=== PATIENT | female | born 1945 | race Caucasian/White ===

== ENCOUNTER 2019-04-16 11:09 | Outpatient (CLI) | payer MEDICARE, SELFPAY ==
--- NOTE | 2019-04-16 | ECG_ITS ---
Measurements Intervals [place] Rate: 71 P: 50 FL: 192 QRS: -20 QRSD: 98 T: 30 QT: 382 QTc: 416 Interpretive Statements SINUS RHYTHM DELAYED PRECORDIAL R/S TRANSITION BORDERLINE ECG Electronically Signed On 04-16-2019 11:41:42 MOLD RELEASE WORKER by Rashad Lamb D.O.
== END 2019-04-16 11:10 | disposition home or self-care (01) ==
LOC: ANHLAB 11:14 → ANHCARD 11:18
PROVIDERS: PCP Internal Medicine; Visit Provider Internal Medicine
DX: R03.0 Elevated blood-pressure reading, without diagnosis of hypertension (principal); R94.31 Abnormal electrocardiogram [ECG] [EKG]
CPT/HCPCS: 93005

== ENCOUNTER 2019-12-08 11:59 | Emergency (ER) | payer MEDICARE, SELFPAY ==
[2019-12-08 12:11] VITALS: BP 175/82; PULSE 85; RESP 20; TEMP 36.9; O2SAT 100
--- NOTE | 2019-12-08 12:18 | ED.SKABFB ---
HPI - Skin/Abscess/Foreign Bdy General Chief complaint: Skin/Abscess/Foreign Body Stated complaint: shingles Time Seen by Provider: 12/08/19 12:15 Source: patient Mode of arrival: ambulatory Limitations: no limitations History of Present Illness HPI narrative: Patient is a 74-year-old female who presents complaining of rash to right back/ribs x1 day. She reports burning sensation and pain prior to rash x2 days. She denies using new soaps, detergents, or lotions. She denies exposure to chemicals or environmental allergens. She denies taking vbor-fyw-frqewsq medications for pain at this time. MD complaint: rash Related Data Home Medications Medication Instructions Recorded Confirmed ergocalciferol (vitamin D2) 1,250 1,250 mcg PO WEEKLY 07/19/19 12/08/19 mcg (50,000 unit) capsule multivitamin 1 tablet PO DAILY 07/19/19 12/08/19 Allergies Allergy/AdvReac Type Severity Reaction Status Date / Time No Known Allergies Allergy Mild Verified 08/13/19 10:06 Review of Systems Review of Systems: Narrative: CONSTITUTIONAL: Denies fever, chills, or sweats. EYES: Denies visual changes, redness, or discharge. ENT: Denies rhinorrhea, congestion, sore throat, or otalgia. CARDIOVASCULAR: Denies chest pain, palpitations, or edema. RESPIRATORY: Denies cough or dyspnea. GASTROINTESTINAL: Denies abdominal pain, nausea, vomiting, or diarrhea. GENITOURINARY: Denies dysuria or hematuria. SKIN: Reports rash to right flank/chest wall MUSCULOSKELETAL: Denies back pain, joint pain, or myalgia. NEUROLOGIC: Denies headache, numbness, dizziness, or weakness. PSYCHIATRIC: Denies anxiety or depression. [facility] Past Medical History Medical History (Updated 12/08/19 @ 12:37 by JACOB Ramirez) No significant family history Surgical History Surgical History (Updated 12/08/19 @ 12:29 by JACOB Ramirez) H/O breast biopsy Social History Social History (Updated 12/08/19 @ 12:29 by JACOB Ramirez) Smoking status: Never smoker Alcohol intake: never Substance use: never Gender identity (if verbalized by the patient): Female Exam Narrative: Exam Narrative: GENERAL: Well-appearing, well-nourished, and in no acute distress. HEAD: Normocephalic, atraumatic. EYES: EOMI. No redness or drainage. Conjunctiva are normal. ENT: Mucous membranes pink and moist. y. CHEST: No respiratory distress. Clear to auscultation. HEART: Regular rate and rhythm. EXTREMITIES: Normal range of motion. SKIN: Approximate 2 cm area of erythematous maculopapular rash with few vesicles to right flank/chest wall NEURO: No focal deficits. Alert and oriented x3. Gait steady. PSYCH: Normal affect. No signs of depression or anxiety. Course Vital Signs Vital signs: Vital Signs Temperature 36.9 C 12/08/19 12:11 Pulse Rate 85 12/08/19 12:11 Respiratory Rate 20 12/08/19 12:11 Blood Pressure 175/82 H 12/08/19 12:11 Pulse Oximetry 100 12/08/19 12:11 Temperature 36.9 C 12/08/19 12:11 Pulse Rate 85 12/08/19 12:11 Respiratory Rate 20 12/08/19 12:11 Blood Pressure 175/82 H 12/08/19 12:11 Pulse Oximetry 100 12/08/19 12:11 Reviewed. Patient has been instructed to follow-up with her PCP regarding her blood pressure. MDM - Skin/Abscess/Foreign Bdy MDM Narrative Medical decision making narrative: Patient has varicella zoster rash to right chest wall. Patient will be treated with antivirals at this time. Discussed pain management. Patient to follow-up with PCP within 5 days. Patient is stable for discharge home with outpatient follow-up. Differential Diagnosis Differential diagnosis: Likely herpes zoster Critical Care Time Critical Care Time Critical Care Time: No Discharge Plan Discharge Clinical Impression: Herpes zoster Qualifiers: Herpes zoster complications: without complications Qualified Code(s): B02.9 - Zoster without complications Patient Disposition: Home, Self-Care Condition: Stable
== END 2019-12-08 12:38 | disposition home or self-care (01) ==
PROVIDERS: Emergency Provider Nurse Practitioner; PCP Internal Medicine
DX: B02.9 Zoster without complications (principal)
CPT/HCPCS: 99213; G0463

== ENCOUNTER 2020-01-03 03:02 | Outpatient (CLI) | payer MEDICARE, SELFPAY ==
[2020-01-03 18:02] LABS: SARS-CoV-2 RNA PCR Negative
== END 2020-01-03 03:03 | disposition home or self-care (01) ==
LOC: ANHCOVIDDT 03:02
PROVIDERS: PCP Internal Medicine; Visit Provider Internal Medicine Gastroenterology
DX: Z01.812 Encounter for preprocedural laboratory examination (principal); Z20.828 Contact with and (suspected) exposure to other viral communicable diseases
CPT/HCPCS: 87635; C9803; U0003

== ENCOUNTER 2020-01-06 01:17 | Day surgery (SDC) | payer MEDICARE, SELFPAY ==
[2019-12-27 15:18] VITALS: BMI 32.1
[2020-01-06 10:51] VITALS: BP 148/72; PULSE 86; RESP 14; TEMP 36.8; O2SAT 98
[2020-01-06] MEDS: LACTATED RINGERS 1,000 ML 150 ML IV CONT (10:54)
--- NOTE | 2020-01-06 10:55 | WPDANESEPPF ---
Anes - Initial Pre Proc Eval Procedure: Operation Date: 01/06/20 12:00 Proposed Procedures p Screening Colonoscopy - Marcelo Gauthier DO Date/Time: 01/06/20 10:55 Surgeon: Marcelo Gauthier DO Pre Op Diagnosis: Neoplasm Screening Patient Data Age: 74 Gender: F Height: 1.55 m Weight: 77 kg Last Vital Signs Temp 36.8 C 01/06/20 10:51 Pulse 86 01/06/20 10:51 Resp 14 01/06/20 10:51 BP 148/72 H 01/06/20 10:51 Pulse Ox 98 01/06/20 10:51 Allergies Allergy/AdvReac Type Severity Reaction Status Date / Time No Known Allergies Allergy Mild Verified 01/06/20 10:50 Home Medications Medication Instructions Recorded Confirmed Type ergocalciferol (vitamin D2) 1,250 1,250 mcg PO WEEKLY 07/19/19 12/27/19 History mcg (50,000 unit) capsule multivitamin 1 tablet PO DAILY 07/19/19 12/27/19 History metformin 500 mg tablet 500 mg PO BID #180 tablet 08/06/19 12/27/19 Rx pravastatin 80 mg tablet 80 mg PO DAILY #90 tablet 08/06/19 12/27/19 Rx Patient hx anesthesia problems: none Family hx anesthesia problems: none PMFSH Past Medical History Medical History (Updated 01/06/20 @ 10:58 by Sher Espitia MD) Cancer breast - 2007 Dyslipidemia IFG (impaired fasting glucose) No significant family history Obesity Surgical History Surgical History (Updated 12/08/19 @ 12:29 by JACOB Ramirez) H/O breast biopsy Social History Social History (Updated 12/08/19 @ 12:29 by JACOB Ramirez) Smoking status: Never smoker Alcohol intake: never Substance use: never Substance use type: does not use Gender identity (if verbalized by the patient): Female Spiritual care concerns: No Anes - Eval Final PreProcedure Day of Procedure 01/06/20 10:55 Patient weight: obese Heart: regular rate and rhythm Lungs: clear to auscultation and normal air movement Airway: Mallampati scale class II Neurological: alert and oriented Last oral intake: >/= 8 hours ASA classification: III Emergent: no Anesthetic plan: proceed Anesthesia type and monitoring: general GIVS Informed Consent: The patient's anesthetic plan and its attendant risks and benefits were discussed with the patient/family/POA. Questions were solicited and answers provided to the satisfaction of the patient/family/POA.
--- NOTE | 2020-01-06 11:28 | P.HP_ITS ---
H&P: [facility] History of Present Illness Date/Time: 01/06/20 11:28 Chief complaint: Neoplasm Screening Narrative: Reason for visit is colonoscopy. This very pleasant lady seen in consultation at the request of the primary physician. Impression: Screening and surveillance colonoscopy. The patient's history adenomatous colon polyps. Pre diabetes. Obesity. 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 HLD. Vitamin-D deficiency. Recommendation: Colonoscopy. History: this very pleasant lady's here for screening and surveillance colonoscopy. She has history adenomatous colon polyps. GI review systems relatively unremarkable. Physical examination: General: very pleasant patient in no acute distress. HEENT: Head was normocephalic sclerae is clear mouth without masses neck was supple. Heart: Rate rhythm regular without S3 or S4. Lungs: CTA. Abdomen: Soft with no guarding or rigidity. Bowel sounds were active. Neurologic: Cranial nerves 2 through 12 intact. No focal defects. No clonus. Musculoskeletal system: Revealed no joint tenderness or swelling no muscle atrophy. Extremities: Reveal no significant edema. Skin: Warm and dry with normal turgor. Mental status: intact. Patient is alert and oriented. Review of Systems Review of Systems: All systems reviewed & are unremarkable except as noted in HPI and below PMFSH Past Medical History Medical History (Updated 01/06/20 @ 10:58 by Sher Espitia MD) Cancer breast - 2007 Dyslipidemia IFG (impaired fasting glucose) No significant family history Obesity Surgical History Surgical History (Updated 12/08/19 @ 12:29 by JACOB Ramirez) H/O breast biopsy Social History Social History (Updated 12/08/19 @ 12:29 by JACOB Ramirez) Smoking status: Never smoker Alcohol intake: never Substance use: never Substance use type: does not use Gender identity (if verbalized by the patient): Female Spiritual care concerns: No Meds Home Medications and Allergies Home Medications Medication Instructions Recorded Confirmed Type ergocalciferol (vitamin D2) 1,250 1,250 mcg PO WEEKLY 07/19/19 12/27/19 History mcg (50,000 unit) capsule multivitamin 1 tablet PO DAILY 07/19/19 12/27/19 History metformin 500 mg tablet 500 mg PO BID #180 tablet 08/06/19 12/27/19 Rx pravastatin 80 mg tablet 80 mg PO DAILY #90 tablet 08/06/19 12/27/19 Rx Allergies Allergy/AdvReac Type Severity Reaction Status Date / Time No Known Allergies Allergy Mild Verified 01/06/20 10:50 Vital Signs Vital Signs - 24 hr 01/06/20 10:51 Temperature 36.8 C Pulse Rate 86 Respiratory Rate 14 Blood Pressure 148/72 H Pulse Oximetry 98
[2020-01-06 11:44] LABS: Glucose Point of Care 103 (65-105)
[2020-01-06 12:07] VITALS: BP 100/50; PULSE 75; RESP 17; O2SAT 97
[2020-01-06 12:17] VITALS: BP 102/53; PULSE 72; RESP 17; O2SAT 98
[2020-01-06 12:27] VITALS: BP 127/56; PULSE 70; RESP 17; O2SAT 99
== END 2020-01-06 12:55 | disposition home or self-care (01) ==
PROVIDERS: PCP Internal Medicine; Visit Provider Internal Medicine Gastroenterology
PROC: 0DJD8ZZ Inspection of Lower Intestinal Tract, Via Natural or Artificial Opening Endoscopic (ICD-10-PCS; CPT 45378; principal; 2020-01-06 12:00)
DX: Z12.11 Encounter for screening for malignant neoplasm of colon (principal); K64.8 Other hemorrhoids; K57.90 Diverticulosis of intestine, part unspecified, without perforation or abscess without bleeding; K63.89 Other specified diseases of intestine; Z86.010 Personal history of colon polyps; R73.03 Prediabetes; E66.9 Obesity, unspecified; Z68.32 Body mass index [BMI] 32.0-32.9, adult; Z85.3 Personal history of malignant neoplasm of breast; E78.5 Hyperlipidemia, unspecified; R73.01 Impaired fasting glucose; Z79.84 Long term (current) use of oral hypoglycemic drugs
CPT/HCPCS: 45380; 88305; J2704; J7120

== ENCOUNTER → 2020-05-19 10:12 | Outpatient (CLI) | payer MEDICARE, SELFPAY ==
--- NOTE | ~2020-05-19 | DEXA_ITS ---
Bone Density Report Name: Carolynn Magaña Age: 75 Sex: Female Ethnicity: White Date of : 1945 Indication: postmenopausal; screening for osteoporosis; height loss; Referring Provider: LIZ BARRETT Study: Bone densitometry was performed. Exam Date: May 19, 2020 Accession number: [id number] Bone Density: Region BMD T-score Z-score Classification AP Spine (L1-L4) 1.211 1.5 3.9 Normal Femoral Neck (Left) 0.719 -1.2 1.0 Osteopenia Total Hip (Left) 0.876 -0.5 1.3 Normal Femoral Neck (Right) 0.692 -1.4 0.7 Osteopenia Total Hip (Right) 0.881 -0.5 1.3 Normal Total Hip Mean 0.879 -0.5 1.3 Normal World Health Organization criteria for BMD impression classify patients as: Normal (T-score at or above -1.0), Osteopenia (T-score between -1.0 and -2.5), or Osteoporosis (T-score at or below -2.5). 10-year Fracture Risk(1): Major Osteoporotic Fracture 11% Hip Fracture 2.0% Reported Risk Factors: [place] (), Neck BMD=0.692, BMI=34.2 (1) FRAX(R) Version 3.08. Fracture probability calculated for an untreated patient. Fracture probability may be lower if the patient has received treatment. Previous Exams: Region Exam Age BMD T-score BMD Change BMD Change Date g/cm2 vs Baseline vs Previous AP Spine(L1-L4) 05/19/2020 75 1.211 1.5 0.019 -0.010 04/05/2016 70 1.221 1.6 0.030* 0.042* 09/02/2009 64 1.179 1.2 -0.013 -0.013 05/30/2006 61 1.192 1.3 Total Hip(Left) 05/19/2020 75 0.876 -0.5 -0.049* -0.073* 04/05/2016 70 0.950 0.1 0.024 0.024 09/02/2009 64 0.926 -0.1 0.000 0.000 05/30/2006 61 0.925 -0.1 Total Hip(Right) 05/19/2020 75 0.881 -0.5 -0.068* -0.047* 04/05/2016 70 0.928 -0.1 -0.021 0.023 09/02/2009 64 0.905 -0.3 -0.044* -0.044* 05/30/2006 61 0.949 0.1 *Denotes significance at 95% confidence level, LSC for AP Spine = 0.022 g/cm2, LSC for Total Hip = 0.027 g/cm2 Clinical Information Provided by Patient: Has used the following medications: Vitamin D, MULTI-VITAMIN Patient maximum height was 62 Menopause Age: 49 No regular weight bearing exercise Drinks caffeinated beverages Onset of menses at age 10 Number of children 0 Impression: The patient has low bone mass, based on the Right Femoral Neck T-score
== END ==
PROVIDERS: Visit Provider Obstetrics & Gynecology Gynecology
DX: Z78.0 Asymptomatic menopausal state (principal); M85.852 Other specified disorders of bone density and structure, left thigh; M85.851 Other specified disorders of bone density and structure, right thigh
CPT/HCPCS: 77080

== ENCOUNTER → 2020-11-02 13:45 | Outpatient (CLI) | payer MEDICARE, SELFPAY ==
--- NOTE | ~2020-11-02 | XR_ITS ---
EXAMINATION: XR hip RT 2V w AP pelvis DATE: 11/02/2020 14:12 INDICATION: Unspecified osteoarthritis, unspecified site. Right hip pain. TECHNIQUE: An anteroposterior view pelvis and 2 views of right hip were obtained. COMPARISON: Right hip radiographs 06/29/2017 FINDINGS: There is lumbar levoscoliosis and severe spondylosis. No fracture. There is mild osteoarthr itis of the hips. Osteitis pubis is noted. IMPRESSION: 1. Mild osteoarthritis of the hips. Reviewed, dictated and finalized at location A.
== END ==
PROVIDERS: PCP Internal Medicine; Visit Provider Internal Medicine
DX: M16.11 Unilateral primary osteoarthritis, right hip (principal)
CPT/HCPCS: 73502

== ENCOUNTER → 2022-03-18 15:29 | Outpatient (CLI) | payer MEDICARE, SELFPAY ==
--- NOTE | ~2022-03-18 | XR_ITS ---
XR knee RT 3V DATE: 03/18/2022 16:29 INDICATION: Knee pain TECHNIQUE: [place] and standing AP and lateral views COMPARISON: April 09, 2007 right knee FINDINGS: There is tricompartment osteoarthritis, most prominent at the medial and patellofemoral com partments, with moderately prominent loss of height of medial compartment joint spaces and periarticu lar spurring at all 3 compartments, most prominent at the patella. There is prominent superior pole patellar enthesopathy at the quadriceps tendon insertion. No fracture, dislocation or joint effusion. No periosteal reaction or bone destruction. There are small radiopaque density overlying the inner aspect of the lateral compartment joint space may be a small radiopaque intra-articular loose body. No other radiopaque intra-articular loose body or chondrocalcinosis is noted. IMPRESSION: Tricompartment osteoarthritis Possible small radiopaque intra-articular loose body Reviewed, dictated and finalized at location A. L BONDER
--- NOTE | ~2022-03-18 | XR_ITS ---
XR hip RT min 2V DATE: 03/18/2022 16:29 INDICATION: Right hip pain TECHNIQUE: AP and lateral views of right hip COMPARISON: 11/02/2020 right hip FINDINGS: No fracture or dislocation, avascular necrosis or bone destruction of the right hip. Right hip joint space appears relatively well preserved. Pubic symphysis and right sacroiliac joint are intact. Prominent degenerative disc disease at L4-5 and L5-S1. IMPRESSION: No significant abnormality right hip Prominent degenerative disc disease at L4-5 and L5-S1 Reviewed, dictated and finalized at location A. TER CIVIL
== END ==
PROVIDERS: PCP Nurse Practitioner; Visit Provider Nurse Practitioner
DX: M25.551 Pain in right hip (principal); M17.11 Unilateral primary osteoarthritis, right knee; M51.36 Other intervertebral disc degeneration, lumbar region; M51.37 Other intervertebral disc degeneration, lumbosacral region
CPT/HCPCS: 73502; 73562

== ENCOUNTER 2023-06-08 12:59 | Outpatient (CLI) | payer MEDICARE, SELFPAY ==
--- NOTE | ~2023-06-08 | DEXA_ITS ---
Bone Density Report Name: AVA GORDON Age: 78 Sex: Female Ethnicity: White Date of : 1945 Indication: postmenopausal; screening for osteoporosis; height loss; Referring Provider: LIZ BARRETT Study: Bone densitometry was performed. Exam Date: June 08, 2023 Accession number: [id number] Bone Density: Region BMD T-score Z-score Classification AP Spine (L1-L4) 1.274 2.1 4.7 Normal Femoral Neck (Left) 0.677 -1.5 0.7 Osteopenia Total Hip (Left) 0.871 -0.6 1.4 Normal Femoral Neck (Right) 0.662 -1.7 0.6 Osteopenia Total Hip (Right) 0.867 -0.6 1.4 Normal Total Hip Mean 0.869 -0.6 1.4 Normal World Health Organization criteria for BMD impression classify patients as: Normal (T-score at or above -1.0), Osteopenia (T-score between -1.0 and -2.5), or Osteoporosis (T-score at or below -2.5). 10-year Fracture Risk(1): Major Osteoporotic Fracture 13% Hip Fracture 3.0% Reported Risk Factors: [place] (), Neck BMD=0.662, BMI=33.4 (1) FRAX(R) Version 3.08. Fracture probability calculated for an untreated patient. Fracture probability may be lower if the patient has received treatment. Previous Exams: Region Exam Age BMD T-score BMD Change BMD Change Date g/cm2 vs Baseline vs Previous AP Spine(L1-L4) 06/08/2023 78 1.274 2.1 0.082* 0.063* 05/19/2020 75 1.211 1.5 0.019 -0.010 04/05/2016 70 1.221 1.6 0.030* 0.042* 09/02/2009 64 1.179 1.2 -0.013 -0.013 05/30/2006 61 1.192 1.3 Total Hip(Left) 06/08/2023 78 0.871 -0.6 -0.055* -0.006 05/19/2020 75 0.876 -0.5 -0.049* -0.073* 04/05/2016 70 0.950 0.1 0.024 0.024 09/02/2009 64 0.926 -0.1 0.000 0.000 05/30/2006 61 0.925 -0.1 Total Hip(Right) 06/08/2023 78 0.867 -0.6 -0.082* -0.014 05/19/2020 75 0.881 -0.5 -0.068* -0.047* 04/05/2016 70 0.928 -0.1 -0.021 0.023 09/02/2009 64 0.905 -0.3 -0.044* -0.044* 05/30/2006 61 0.949 0.1 *Denotes significance at 95% confidence level, LSC for AP Spine = 0.022 g/cm2, LSC for Total Hip = 0.027 g/cm2 Clinical Information Provided by Patient: Has used the following medications: Vitamin D, MULTI-VITAMIN Patient maximum height was 62 Menopause Age: 49 No regular weight bearing exercise Drinks caffeinated beverages Onset of
== END 2023-06-08 13:00 ==
PROVIDERS: PCP Nurse Practitioner; Visit Provider Obstetrics & Gynecology Gynecology
DX: Z78.0 Asymptomatic menopausal state (principal); M85.852 Other specified disorders of bone density and structure, left thigh; M85.851 Other specified disorders of bone density and structure, right thigh
CPT/HCPCS: 77080

== ENCOUNTER 2024-08-30 12:36 | Outpatient (CLI) | payer MEDICARE, OTHER, SELFPAY ==
--- NOTE | ~2024-08-30 | MM_ITS ---
EXAMINATION: MM screening jessica BI w isasc HISTORY: Screening mammogram TECHNIQUE: Craniocaudal and mediolateral oblique 3-D tomosynthesis images were obtained and synthetic 2-D images were generated. CAD analysis was submitted and interpreted. COMPARISON: 12/12/2006, 05/30/2006 BREAST PARENCHYMAL COMPOSITION:Not Dense. There are scattered areas of fibroglandular density. FINDINGS: No suspicious mass, calcification, or architectural distortion are identified in either telma ast to suggest malignancy. There has been no suspicious interval change. IMPRESSION: No mammographic evidence of malignancy. Recommend routine screening mammography in one year. BI-RADS Category 1: Negative Reviewed, dictated and finalized at location .
== END 2024-08-30 12:37 | disposition home or self-care (01) ==
LOC: ANHIMG 12:39
PROVIDERS: PCP Nurse Practitioner Family; Visit Provider Obstetrics & Gynecology Gynecology
DX: Z12.31 Encounter for screening mammogram for malignant neoplasm of breast (principal)
CPT/HCPCS: 77063; 77067

== ENCOUNTER 2024-10-16 13:30 | Emergency (ER) | payer MEDICARE, OTHER, SELFPAY ==
--- NOTE | ~2024-10-16 | XR_ITS ---
EXAMINATION: XR hand RT min 3V DATE: 10/16/2024 14:07 INDICATION: Dorsal/medial right hand pain post fall TECHNIQUE: Posteroanterior, oblique and lateral views of the right hand were obtained. COMPARISON: None. FINDINGS: Diffuse osteopenia. No traumatic malalignment. No fracture. There is likely chronic mild palmar sublu xation at the first-third metacarpophalangeal joints with moderate associated osteoarthritis. Severe osteoarthritis at the third and fourth distal interphalangeal joints with radial sided central erosio ns at the base of the distal phalanges with gullwing configuration consistent with erosive osteoarthr itis. This results in slight radial angulation at both joints. Moderate osteoarthritis at the first i nterphalangeal, second and fifth distal interphalangeal and fourth proximal interphalangeal joints as well as the first carpometacarpal joint. Mild osteoarthritis at the wrist, triscaphe and remaining i nterphalangeal joints. Mild periarticular soft tissue swelling about the first and third metacarpopha langeal joints. IMPRESSION: 1. 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 No acute osseous adenopathy. Reviewed, dictated and finalized at location A.
--- NOTE | ~2024-10-16 | XR_ITS ---
EXAMINATION: XR shoulder RT min 2V DATE: 10/16/2024 14:07 INDICATION: Right shoulder pain post fall TECHNIQUE: AP internally and externally rotated, AP oblique externally rotated and axillary views of the right shoulder were obtained. COMPARISON: 06/04/2010 FINDINGS: Mild cephalad subluxation of the right humeral head with respect to the glenoid with narrowing of the subacromial space consistent with rotator cuff tear. No fracture. Moderate osteoarthritis at the acr omioclavicular joint with small inferiorly directed osteophytes. There is also mild right glenohumera l osteoarthritis with moderate-sized marginal osteophytes along the posterior and posterior inferior rim of the glenoid. Calcified nodule right lung consistent with old granulomatous disease. Right lung s otherwise clear with no pleural fusion or pneumothorax. Soft tissues are unremarkable. IMPRESSION: 1. Mild cephalad subluxation of the right humeral head consistent with rotator cuff tear. 2. Mild right glenohumeral and moderate acromioclavicular osteoarthritis. No fracture. Reviewed, dictated and finalized at location A. IMPRESSION: 1. Mild cephalad subluxation of the right humeral head consistent with rotator cuff tear. 2. Mild right glenohumeral and moderate acromioclavicular osteoarthritis. No fr acture.
--- OUTSIDE RECORDS SUMMARY | 2024-10-16 13:33 | XMS_ITS | Clinical Summary ---
Author Organization [facility] Address [address] [facility] [address] [place] [address] Phone Care Team Providers Care Bag Printer Name Role Phone Unavailable Primary Care Provider Unavailabl e Social History Tobacco Use Types Packs/Day Years Used Date Smoking Tobacco: Never Assessed Comments Unknown Sex and Gender Information Value Date Recorded Sex Assigned at Not on file Legal Sex Female 10:29 PM CDT Gender Identity Not on file Sexual Orientation Not on file Plan of Treatment Health Maintenance Due Date Last Done Comments Hepatitis C Virus (HCV) Screening 1945 TdaP Immunization 1945 Pneumococcal Immunization (5 0+ years) (1 of 1 - PCV) 1994 Zoster Immunization (1 of 2) 1994 Respiratory Syncytial Virus (RSV) Immunization (Adult) (1 - 1-dose 75+ series) 05/21/2019 SARS-COV-2 Immunization (1 - season) 2023 Influenza Immunization (#1) 2024 Colonoscopy Discontinued 01/06/2020, 10/15/2014 Colorectal Cancer Screening Discontinued Cologuard Discontinued Hepatitis B Immunization Aged Out No longer eligible based on patient's age to complete this topic Human Papillomavirus (HPV) Immunization Aged Out No longer eligible based on patient's age to complete this topic Immunochemical Fecal Occult Blood Discontinued Meningococcal Immunization (ACWY) Aged Out No longer eligible based on patient's age to complete this topic Rotavirus Immunization Aged Out No lo nger eligible based on patient's age to complete this topic Procedures Procedure Name Priority Date/Time Associated Diagnosis Comments COLONOSCOPY Routine 01/06/2020 from Last 3 Months or Most Recently Relevant to Health Maintenance Results * COLONOSCOPY (01/06/2020) Marcelo Gauthier DO PROCEDURE/MINOR SURGICAL ORDERA BLES Final Result from Last 3 Months or Most Recently Relevant to Health Maintenance Insurance * Guarantor: Carolynn Magaña Account Type Relation to Patient Date of Phone Billing Address Personal/Family Self [address] [place] [address] MEDICARE [facility]
--- OUTSIDE RECORDS SUMMARY | 2024-10-16 13:33 | XMS_ITS | Clinical Summary ---
Author Organization [facility] Address [address] [place] [id number] Care Team Providers Care Cigar Packer And Grader Name Role Phone Adelaide Dill MD Primary Care Provider + Allergies No known active allergies Medications cholecalciferol (VITAMIN D-3) 2,000 unit tablet Active multivitamin tabletIndication s:Vitamin Deficiency Prevention Active pravastatin (PRAVACHOL) 40 mg tablet daily Active metFORMIN (GLUCOPHAGE) 1,000 mg tablet Acti ve ergocalciferol (VITAMIN D) 50,000 unit capsule TK ONE C PO Q WK 02/11/2019 Active difluprednate (DUREZOL) 0.05 % drops Active calcium carb,cit-mag12-v it D3 (Calcium Magnesium + D) 500-250-200 mg-mg-unit tablet Active brimonidine-lucian loL (COMBIGAN) 0.2-0.5 % ophthalmic solution Active bromfenac 0.09 % ophthalmic solution Active Active Problems Problem Noted Date Diagnosed Date History of left breast cancer 02/15/2018 Ductal carcinoma in situ (DCIS) of breast 2014 Surgical History Surgery Date Site/Laterality Comments AL BX BREAST NEEDLE CORE W/O IMAGING GUIDANCE SPX Biopsy Breast Percutaneous Needle Core - (Added by TW Conv) Family History Medical History Relation Name Comments Stomach cancer Father Family histor y of malignant neoplasm of stomach - (Added by TW Conv) Relation Name Status Comments Father Social History Tobacco Use Types Packs/Day Years Used Date Smoking Tobacco: Never Smokeless Tobacco: Never Alcohol Use Standard Drinks/Week Comments No 0 (1 standard drink = 0.6 oz pur e alcohol) Comments No Sex and Gender Information Value Date Recorded Sex Assigned at Not on file Legal Sex Female 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 Gender Identity Not on file Sexual Orientation Not on file Obstetrics History Last Filed Vital Signs Vital Sign Reading Time Taken Comments Blood Pressure - - Pulse - - Temperature - - Respiratory Rate - - Oxygen Saturation - - Inhaled Oxygen Concentration - - Weight 77.1 kg (169 lb 15.6 oz) 05/06/2021 2:33 PM PUBLIC AREA ATTENDANT Height 154.9 cm (5' 1) 05/06/2021 2:33 PM PUBLIC AREA ATTENDANT Body Mass Index 32.12 05/06/2021 2:33 PM PUBLIC AREA ATTENDANT Plan of Treatment Health Maintenance Due Date Last Done Comments Depression Screening 1945 Fall Risk Assessment 1945 Osteoporosis Screening-Bone Density Scan 1945 Hepatitis B Screening 1962 Zoster Vaccine (1 of 2) 1994 Well Visit 65+ 2009 Influenza Vaccine (#1) 2024 9, 12/05/2017, 12/20/2016, Additional history exists DTaP/Tdap/Td Vaccine (2 - Td or Tdap) 08/02/2029 08/03/2019 Pneumococcal vaccine 65+ Completed 12/05/2017, 12/06 Insurance MEDICARE [facility] MEDICARE SUPPLEMENT INSURANCE [facility] MEDICARE SUPPLEMENT INSURANCE MEDICARE [employer] MED[employer]ARE SUPPLEMENT INSURANCE Care Teams Cigar Packer And Grader Relationship Specialty Start Date End Date Adelaide Dill MD [address] [id number] PCP - General Gynecology 07/24/23
--- OUTSIDE RECORDS SUMMARY | 2024-10-16 13:36 | XMS_ITS | Continuity of Care Document ---
Author Organization [facility] Address [address] [facility] [address] [facility] [address] [place] [address] Phone Care Team Providers Care Flag Football Coach Name Role Phone Wilmer Geronimo Unavailable Unavailable Procedures Procedure Date Optic Nerve Topography-Professional Optic Nerve Topography-Professional Optic Nerve Topography Optic Nerve Topography Office/outpatient Visit, Est Optic Nerve Head Eval Office/outpatient Visit, Est Optic Nerve Head Eval No Script Corneal Pachymetry Fundus Photography W/ Report Visual Field Examination(s) No Charge Glasses Check Eye Exam & Treatment Refraction Office/outpatient Visit, Est Fundus Photography W/ Report Advance Directives Directive Yes / No Effective Date File Name No Information Encounters Encounter Description Practice Location Reason(s) For Visit Diagnoses Date Provider Providers Copied on Encounter [facility], [address] [place] [address] [address], [place], [place], [id number], [place] tel:[phone] [facility] No Information 0 Juanpablo Guillen. [facility] , [address], [place], [address], [place]. tel:[phone] Referring Provider: [address], [place], [address]. tel:[phone] [facility], [address], [place], [place], [id number], [place] tel:[phone] [facility] No Information 0-201 0 Juanpablo Guillen. [address], [address], [place], [place], [facility], [place]. tel:[phone] Referring Provider: Wilmer Urrutia, [address], [place], [facility]. tel:[phone] Office/outpat ient Visit, Est [facility], [id number] [place] [address] [address], [place], [place], [id number], [place] tel:[phone] [facility] No Information 3-201 0 Juanpablo Guillen. [address], [address], [place], [place], [facility], [place]. tel:[phone] Office/outpat ient Visit, Est [facility], [id number] [place] [address] [address], [place], [place], [id number], [place] tel:[phone] [facility] No Information 200 9 Juanpablo Guillen. [address], [address], [place], [facility], [place]. tel:[phone] Referring Provider: Wilmer Urrutia, [address], [place], [facility]. tel:[phone] [facility], [address] [place] [address] [address], [place], [place], [id number], [place] tel:[phone] [facility] No Information 9-200 9 Juanpablo Guillen. [address], [address], [place], [facility], [place]. tel:[phone] Referring Provider: Wilmer Urrutia, [address], [place], [facility]. tel:[phone] [facility], [address], [place], [place], [id number], [place] tel:[phone] [facility] No Information Oct-0 8-200 8 Juanpablo Guillen. [address] [facility] , [address], [place], [address], . tel:[phone] [facility], [address], [place], [place], [id number], [place] tel:[phone] [facility] No Information Apr-2 3-200 8 Juanpablo Guillen. [address] [facility] [address], [place], [address], [place]. tel:[phone] Office/outpat ient Visit, [facility], [address], [place], [place], [id number], [place] tel:[phone] [facility] No Information Mar-2 3-200 7 Juanpablo Guillen. [address] [facility], [place], [address], [place]. tel:[phone] Referring Provider: [facility] [address], [place], [facility]. tel:[phone] Family History Family Member Type Diagnosis Age At Onset No Information Payers Payer name Insurance type Covered green party ID Authoriza tion(s) Medicare [facility] [id number] [place] [id number] Social History Type Description Quantity Date Captured Comments Sex Female Smoking Status No Information Chief Complaint And Reason For Visit No Information Reason For Referral Reason For Referral No Information History Of Present Illness Encounter Date Complaint History Of Prese nt Illness No Information Functional Status Date Functional Assessmen t No Information Instructions Date Instruction Additional Infor mation No Information Assessments Type Assessment Date No Information Patient Care Teams Name Effective Dates (start - stop) Status Members No Information
[2024-10-16 13:40] VITALS: BP 169/91; PULSE 99; RESP 18; TEMP 36.4; O2SAT 97
--- NOTE | 2024-10-16 14:03 | ED.FALL ---
HPI - Fall General Chief Complaint: Extremity Injury, Upper Stated Complaint: fall/shoulder pain Time Seen by Provider: 10/16/24 13:40 Source: patient and RN notes reviewed Mode of arrival: ambulatory Limitations: no limitations History of Present Illness HPI Narrative: 79-year-old female presents [facility] complaining of fall proximally 4 days ago. Patient says she was at [employer] when she did not notice a child lying on the ground she tripped over the child falling to her knees and hands. Patient denies hitting her head, loss of conscious, neck pain, back pain. Patient is complaining of right hand pain and right shoulder pain. Patient also reports present her left shoulder but denies any pain to her shoulder. Patient denies any other injuries, numbness, tingling, headaches, dizziness, lightheadedness, blurry vision vision changes, nausea, vomiting, chest pain, difficulty breathing, or any other symptoms. Patient is not take any blood thinners. Patient says he has been taking Tylenol to help with her shoulder pain says it helps has she was unable to move her right shoulder initially to the pain and now she can move for shoulder with mild discomfort. Patient reports a history of high cholesterol and prediabetes. Related Data Home Medications ?Medication ?Instructions ?Recorded ?Confirmed ?Last Taken ?Type multivitamin 1 tablet PO DAILY 07/19/19 10/16/24 01/05/20 History ergocalciferol (vitamin D2) 1,250 1,250 mcg PO WEEKLY 09/16/20 10/16/24 Unknown History mcg (50,000 unit) capsule acetaminophen 650 mg 650 mg PO Q8H 01/15/24 10/16/24 Unknown History tablet,extended release (Tylenol Arthritis Pain) Allergies Allergy/AdvReac Type Severity Reaction Status Date / Time No Known Allergies Allergy Mild Verified 10/16/24 13:31 Review of Systems Review of Systems: CONSTITUTIONAL: Denies fever, chills, or sweats. EYES: Denies visual changes, blurry vision, redness, or discharge. ENT: Denies rhinorrhea, congestion, sore throat, or otalgia. CARDIOVASCULAR: Denies chest pain, palpitations, dizziness, lightheadedness, or edema. RESPIRATORY: Denies cough, wheezing, difficulty breathing, or dyspnea. GASTROINTESTINAL: Denies abdominal pain, nausea, vomiting, or diarrhea. GENITOURINARY: Denies dysuria or hematuria. SKIN: Denies rash or itching. MUSCULOSKELETAL: Denies back pain, joint pain, or myalgia. Positive for right shoulder and right hand pain. NEUROLOGIC: Denies headache, loss of consciousness, seizures, focal weakness, slurred speech, facial droop, numbness, or weakness. PSYCHIATRIC: Denies anxiety or depression. All other systems reviewed are negative, except as documented in HPI. REPLACED BY [facility] Past Medical History Medical History Arthritis Obesity Cancer breast - 2007 No significant family history Dyslipidemia IFG (impaired fasting glucose) Surgical History Surgical History History of appendectomy H/O breast biopsy Family History Family History Father Stomach cancer Mother Pulmonary fibrosis Social History Social History Smoking status: Never smoker Second hand tobacco smoke exposure: Yes Alcohol intake: never Substance use: never Substance use type: does not use Current Housing: Decline to Answer Concerned About Future Housing: Decline to Answer Difficulty Paying Gas/Electric Bills: Decline to Answer Difficulty Paying for Meds: Decline to Answer Currently Unemployed: Decline to Answer Education: Decline to Answer Difficulty w/ Childcare or Family Care: Decline to Answer Living arrangements: with family Occupation/Education: retired Gender identity (if verbalized by the patient): Female Sexual Orientation (if Verbalized by the Patient): Straight or Heterosexual Spiritual care concerns: No Agree to blood products: Yes Comments At the time of my signature, I reviewed and agree with the nursing past medical, surgical, social, and family history. There is no relevant family history pertinent to the patient complaint. Exam Narrative: GENERAL: This is a well-nourished, well-developed adult, in no apparent distress. They are non ill-appearing, nontoxic appearing. HEAD: normocephalic, atraumatic. No raccoon eyes or Rebollar signs. EYES: Sclera clear/white. Conjunctiva normal. Vision is grossly intact. Extraocular movements intact. Pupils PERRLA. No subconjunctival hemorrhage. EARS: External ears normal, auditory canals clear and without drainage, TMs normal without perforation. Hearing grossly intact. No hemotympanum bilaterally. NOSE: External nose normal with no obvious nasal discharge, nasal turbinates without redness, no rhinorrhea. No septal hematoma. THROAT: Mucous membranes moist, posterior pharynx clear, without erythema or swelling. Uvula midline. NECK: Neck supple, non-tender without lymphadenopathy, masses or thyromegaly. No cervical point tenderness, crepitus, step-off. No midline tenderness. Neck nontender to full range of motion. CARDIOVASCULAR: Regular rate and rhythm without murmurs, gallops, or rubs. CHESTWALL: Chest wall nontender, no accessory muscle movement, no retractions. No paradoxical chest wall movements. No flail chest segment. RESPIRATORY: Clear to auscultation. Breath sounds equal bilaterally. No wheezes, rales, or rhonchi. GASTROINTESTINAL: Abdomen soft, non-tender, nondistended. Bowel sounds are active. No hepato-splenomegaly, or palpable masses. No guarding or rigidity. No rebound tenderness. Negative greg's sign and vance yang's sign. SKIN: warm, Dry, intact with no suspicious lesions or rash, good texture and turgor. NEURO: awake, alert, and oriented to person, place and time. There were no obvious focal neurologic abnormalities. EXTREMITIES: No pelvic instability. Bilateral knees are normal. Left shoulder: Mild bruising to the lateral shoulder, nontender through full range of motion, no bony tenderness. Otherwise shoulder unremarkable. Right shoulder: No obvious deformity, bruising, injury, redness, swelling. Mild tenderness with shoulder flexion otherwise nontender through full range of motion. Normal sensation. Capillary refill less than 2 seconds. Neurovascular status intact distal injury. Right radial pulse 2 +palpable. Right hand: No obvious deformity, redness, swelling. Mild bruising the 4th and 5th MCP joints. There is mild tenderness to palpation to the distal 5th metacarpal. Nontender through full range of motion. Patient is able to wiggle her fingers. Capillary refill less than 2 seconds. Neurovascular status intact distal injury. BACK: Nontender without deformity. No CVA tenderness. No thoracic or lumbar point tenderness, crepitus, or step-offs. Course Course Emergency Course: Portions of this record may have been created with voice recognition software Level of Care: Express Care Visit Vital Signs Vital signs: Vital Signs Temperature 97.6 F 10/16/24 13:40 Pulse Rate 99 10/16/24 13:40 Respiratory Rate 18 10/16/24 13:40 Blood Pressure 169/91 H 10/16/24 13:40 Pulse Oximetry 97 10/16/24 13:40 Oxygen Delivery Room Air 10/16/24 13:40 Temperature 97.6 F 10/16/24 13:40 Pulse Rate 99 10/16/24 13:40 Respiratory Rate 18 10/16/24 13:40 Blood Pressure 169/91 H 10/16/24 13:40 Pulse Oximetry 97 10/16/24 13:40 Oxygen Delivery Room Air 10/16/24 13:40 Reviewed MDM - Fall MDM Narrative Medical decision making narrative: Will obtain imaging of right shoulder and right hand given tenderness. Patient does have bruising to the shoulder however does nontender, no bony tenderness. X-ray of right hand shows no acute fractures, incidental finding of severe arthritis throughout her right hand. X-ray right shoulder shows no acute fractures however evidence of possible rotator cuff injury due to cephalad subluxation of the right humeral head. Patient does have pain with shoulder flexion specially when putting her hand above her head. May be possible patient injured her rotator cuff from her fall. Patient given a sling and will prefer patient ortho for further evaluation of her shoulder injury. Discussed physical exam findings. Advised supportive measures and signs/symptoms to go to the ER. Pt is appropriate for outpt treatment and f/u. Differential Diagnosis Differential diagnosis: Likely other (Shoulder fracture, shoulder strain, rotator cuff injury, ligament injury, humerus fracture, hand fracture, finger fracture, hand sprain, contusion) Imaging Data Radiologist's impression: ITS Impressions Hand X-Ray 10/16/24 14:19 IMPRESSION: 1. 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 No acute osseous adenopathy. Shoulder X-Ray 10/16/24 14:23 IMPRESSION: 1. Mild cephalad subluxation of the right humeral head consistent with rotator cuff tear. 2. Mild right glenohumeral and moderate acromioclavicular osteoarthritis. No fracture. Critical Care Time Critical Care Time Critical Care Time: No Discharge Plan Discharge Clinical Impression: Injury of right shoulder Qualifiers: Encounter type: initial encounter Qualified Code(s): S49.91XA - Unspecified injury of right shoulder and upper arm, initial encounter Contusion of hand, right Qualifiers: Encounter type: initial encounter Qualified Code(s): S60.221A - Contusion of right hand, initial encounter Contusion of left shoulder Qualifiers: Encounter type: initial encounter Qualified Code(s): S40.012A - Contusion of left shoulder, initial encounter Fall Qualifiers: Encounter type: initial encounter Qualified Code(s): W19.XXXA - Unspecified fall, initial encounter Patient Disposition: Home Condition: Stable Instructions: Rotator Cuff Injury (ED), Contusion in Adults (ED), Rotator Cuff Injury Exercises (DC) Additional Instructions: X-ray right hand and is negative for any fractures but does show arthritis in her hand. Your right shoulder x-ray is negative for any fractures however there is some evidence to suggest you might have a rotator cuff injury. Rest and elevate the arm; wear the sling for comfort. Apply ice 15-20 minute intervals several times a day You may take ibuprofen 600 mg to 800 mg every 6-8 hours. Do not exceed more than 800 mg of ibuprofen per dose. Do not exceed more than 3200 mg ibuprofen in a day. You may take up to 1000 mg Tylenol every 6-8 hours. Do not exceed 1000 mg per dose, do exceed more than 4000 mg of Tylenol in a day. Follow up with Ortho in 3-5 days and further evaluation and management of your shoulder injury. Please go to the ER if he develops severe headaches, dizziness, lightheadedness, nausea, vomiting, one-sided weakness, facial drooping, slurred speech, confusion, loss of consciousness, seizures with chest pain, breathing problems, or any serious concerns. Patient Language: Bermudian Prescriptions: No Action ergocalciferol (vitamin D2) 1,250 mcg (50,000 unit) capsule 1,250 mcg PO WEEKLY Patient Comments: on it 3 times a month pravastatin 80 mg tablet 80 mg PO DAILY Qty: 90 3RF triamcinolone acetonide 0.1 % ointment 1 applic topical BID Qty: 15 0RF multivitamin Tablet 1 tablet PO DAILY acetaminophen [Tylenol Arthritis Pain] 650 mg tablet extended release 650 mg PO Q8H Follow-up/Referrals: Hieu Ramirez MD [Physician] - 3 Days (rotator cuff injury) Valerie Cartagena APRN [Primary Care Provider] - Time of Disposition: 14:38
== END 2024-10-16 14:40 | disposition home or self-care (01) ==
PROVIDERS: PCP Nurse Practitioner Family
DX: S60.221A Contusion of right hand, initial encounter (principal); S40.012A Contusion of left shoulder, initial encounter; W03.XXXA Other fall on same level due to collision with another person, initial encounter; E78.00 Pure hypercholesterolemia, unspecified; R73.03 Prediabetes; M19.90 Unspecified osteoarthritis, unspecified site; E66.9 Obesity, unspecified; Z68.32 Body mass index [BMI] 32.0-32.9, adult; Z85.3 Personal history of malignant neoplasm of breast
CPT/HCPCS: 73030; 73130; 99214; A4565; G0463